=== PATIENT | female | born 1965 | race Caucasian/White ===

== ENCOUNTER 2016-08-16 09:40 | Emergency (ER) | payer OTHER ==
[2016-08-16] MEDS ORDERED: IBUPROFEN 600 MG TABLET PO ONE ×2 (09:55→10:00)
== END 2016-08-16 10:57 ==
DX: M48.56XA Collapsed vertebra, not elsewhere classified, lumbar region, initial encounter for fracture (principal); G89.29 Other chronic pain; M54.5 Low back pain
CPT/HCPCS: 72100; 99284; A4606; Z7610

== ENCOUNTER 2025-04-29 11:15 | Emergency (ER) | payer OTHER ==
[~2025-04-29] VITALS: Ht 167.6 cm; Wt 68.0 kg
[2025-04-29 11:19] VITALS: TEMP 98
[2025-04-29 11:54] LABS: PLATELET COUNT (AUTO) 245 K/uL (150-450); RED BLOOD CELL COUNT(AUTO) 4.45 MIL/uL (4.0-5.2); RED CELL DISTRIBUTION WIDTH 13.9 % (11.5-15.0); WHITE BLOOD COUNT (AUTO) 8.3 K/uL (4.3-11.0)
[2025-04-29 11:59] LABS: CALCIUM, SERUM 9.3 mg/dL (8.5-10.1); CREATININE 0.8 mg/dL (0.6-1.3); SODIUM SERUM 139 mmol/L (136-145); UREA NITROGEN, BLOOD 11 mg/dL (7-18)
[2025-04-29 12:14] LABS: ASPARTATE AMINOTRANSFERASE 19 U/L (15-37); TOTAL PROTEIN, SERUM 7.2 g/dL (6.4-8.2)
[2025-04-29 12:49] LABS: APPEARANCE,URINE CLOUDY (CLEAR); BLOOD, URINE 2+ Ery/uL (NEGATIVE); LEUKOCYTE ESTERASE ,URINE 2+ (NEGATIVE); NITRITE, URINE POSITIVE (NEGATIVE); UGLUCOSE NEGATIVE (NEGATIVE)
[2025-04-29 12:50] LABS: ADD URINE CULTURE YES; SQUAMOUS EPITHELIAL CELL,UR Rare /HPF (None Seen)
[2025-04-29 12:57] LABS: AMPHETAMINE, URINE NEGATIVE (NEGATIVE); BARBITURATE, URINE NEGATIVE (NEGATIVE); COCCAINE, URINE NEGATIVE (NEGATIVE); OPIATE, URINE NEGATIVE (NEGATIVE)
[2025-04-29 12:58] LABS: BENZODIAZEPINE, URINE POSITIVE (NEGATIVE); CANNABINOID, URINE POSITIVE (NEGATIVE)
[2025-04-29] MEDS: CEFTRIAXONE 1 G in IV D5W 50 ML IV ONE (14:10)
[2025-04-29] MEDS ORDERED: CEFTRIAXONE 1GM BAG (ER ONLY) 50 ML IV ONE (15:02)
[2025-04-29 16:13] VITALS: BP 101/60; O2SAT 97
== END 2025-04-29 16:13 | disposition home or self-care (01) ==
LOC: ER 11:24
DX: F32.A Depression, unspecified (principal); F41.9 Anxiety disorder, unspecified; G89.29 Other chronic pain; M54.50 Low back pain, unspecified; N39.0 Urinary tract infection, site not specified
CPT/HCPCS: 99284; 96365; 85025; 80048; 87086; 80076; 36415; 80143; 80307; 81001; J0696